=== PATIENT | male | born 1965 | race Caucasian/White ===

== ENCOUNTER 2021-03-25 02:04 | Emergency (ER) | payer MEDICAID ==
[~2021-03-25] VITALS: Ht 172.7 cm; Wt 81.0 kg
[2021-03-25] MEDS ORDERED: SODIUM CHLORIDE FLUSH 10ML SYR IVF ONE (02:30)
[2021-03-25] MEDS ORDERED: ONDANSETRON 2MG/ML, 2ML IVPush ONE (02:30)
[2021-03-25] MEDS ORDERED: ONDANSETRON 2MG/ML, 2ML ONE (02:44)
[2021-03-25] MEDS ORDERED: MORPHINE SULFATE 4 MG/ML, 1ML ONE ×2 (02:44→03:44)
[2021-03-25] MEDS: MORPHINE SULFATE 4 MG/ML, 1ML IVPush PRN ×2 (03:16→03:46)
[2021-03-25 05:15] VITALS: BP 115/78
== END 2021-03-25 05:41 | disposition home or self-care (01) ==
LOC: ED 05:20
DX: S43.101A Unspecified dislocation of right acromioclavicular joint, initial encounter (principal); M79.662 Pain in left lower leg; F17.200 Nicotine dependence, unspecified, uncomplicated; V13.0XXA Pedal cycle driver injured in collision with car, pick-up truck or van in nontraffic accident, initial encounter; Y93.89 Activity, other specified; Y92.415 Exit ramp or entrance ramp of street or highway as the place of occurrence of the external cause; Y99.8 Other external cause status
CPT/HCPCS: 70450; 71045; 72125; 73030; 73590; 96374; 96375; 99285; J2270; J2405